=== PATIENT | male | born 1960 | race Caucasian/White ===

== ENCOUNTER → 2017-07-08 | Outpatient (REF) | payer OTHER ==
[2017-07-08 17:57] LABS: TOTAL PROTEIN 7.5 GM/DL (6.4-8.2)
[2017-07-10 12:22] LABS: ALBUMIN 4.22 GM/DL (3.29-5.55); ALBUMIN % 56.3 % (55.8-66.1); GAMMA GLOBULIN % 16.5 % (11.1-18.8)
== END ==
LOC: M LABNEURO 16:50
PROVIDERS: ATTEND Psychiatry & Neurology Neurology
DX: M54.2 Cervicalgia (principal); M79.601 Pain in right arm

== ENCOUNTER → 2020-06-08 | Outpatient (CLI) | payer OTHER ==
--- NOTE | 2020-06-09 13:42 | REP ---
INDICATION: THYROTOXICOSIS. COMPARISON: None TECHNIQUE: After the oral administration of 374 uCi of radio iodide 123 a thyroid scan and uptake was performed. FINDINGS: The distribution of the radiotracer throughout the thyroid gland is symmetric. There is no abnormal increased or decreased radionuclide accumulation. The 24 hour uptake calculation is 18.25%. This is slightly below the normal range of 25-35%. IMPRESSION: Mild hypothyroidism as described above. <Electronically signed by Bassem Bell > 06/09/20 [id number]
== END ==
LOC: M RAD 12:45
PROVIDERS: ATTEND Nurse Practitioner Family
DX: E05.00 Thyrotoxicosis with diffuse goiter without thyrotoxic crisis or storm (principal)